=== PATIENT | male | born 1970 | race Caucasian/White ===

== ENCOUNTER 2021-04-23 12:34 | Emergency (ER) | payer BC ==
[2021-04-23] MEDS ORDERED: MORPHINE 4 MG/ML SYR ONE (13:04)
[2021-04-23] MEDS ORDERED: ONDANSETRON 4 MG/2 ML VIAL ONE (13:04)
[2021-04-23 13:34] LABS: Absolute Lymphocytes (CBC) 1.1 K/uL (0.7-4.9); Hematocrit 47.8 % (39.6-49.0); Lymphocytes % 22.8 % (15.3-44.8); MPV 7.9 fL (7.6-11.3); RBC Red Blood Cell Count 5.01 M/uL (4.33-5.43)
--- NOTE | 2021-04-23 13:53 | RAD REPORT ---
EXAM DESCRIPTION: CT - Chest For Pe Angio - 04/23/2021 1:39 pm CLINICAL HISTORY: Chest pain. Pleuritic pain COMPARISON: None. TECHNIQUE: Dynamically enhanced axial 3 mm thick images of the chest were obtained during administra tion of <100> mL Isovue 370 IV contrast. Coronal and oblique reconstruction images were generated and reviewed. Exam utilizes a protocol for optimal evaluation of pulmonary arterial tree. Maximum intensity projections 3D imaging was utilized All CT scans are performed using dose optimization technique as appropriate and may include automated exposure control or mA/KV adjustment according to patient size. FINDINGS: A pulmonary embolus is not seen. A thoracic aortic aneurysm is not noted. A pleural effusion is not seen. A pericardial effusion is not seen. 1 centimeter ground-glass opacity lingula IMPRESSION: Negative for a pulmonary embolism. 1 centimeter ground-glass opacity lingula probably an area of inflammation. Neoplasm is unlikely. How ever, if patient is high risk then follow-up CT chest in 6 months is recommended for re-evaluation
[2021-04-23 13:56] LABS: Albumin 4.3 g/dL (3.4-5.0); Bilirubin Direct 0.1 mg/dL (0-0.2); Bilirubin Total 0.5 mg/dL (0.2-1.0); Magnesium 2.4 mg/dL (1.8-2.4); Potassium 3.6 mmol/L (3.5-5.1); Protein, Total 8.7 g/dL (6.4-8.2); Troponin High Sensitivity 5.1 pg/mL (<58.9)
--- NOTE | 2021-04-23 14:25 | RAD REPORT ---
EXAM DESCRIPTION: Lon Single View04/23/2021 2:03 pm CLINICAL HISTORY: Cough COMPARISON: none FINDINGS: The lungs appear clear of acute infiltrate. The heart is normal size IMPRESSION: No acute abnormalities displayed
[2021-04-23 14:28] LABS: SARS-COV-2 RT PCR NEGATIVE (NEGATIVE)
[2021-04-23] MEDS ORDERED: KETOROLAC 30 MG/ML INJ ONE (15:44)
--- NOTE | 2021-04-23 16:31 | EDPHYS ---
Physician Documentation [facility] Name: Richardson Logan III Age: 50 yrs Sex: Male : 1970 Arrival Date: 04/23/2021 Time: 12:36 Bed 19 Private MD: ED Physician Alex Piedra HPI: 04/23 14:13 This 50 yrs old Male presents to ER via Wheelchair with complaints of Back Pain, Arm rn Pain. 14:13 The patient presents with pain that is acute, with no known mechanism of injury. The rn symptoms are located in the left subscapular area. Onset: The symptoms/episode began/occurred this morning. The pain radiates to the left arm. Associated signs and symptoms: Pertinent positives: Cough and congestion. Modifying factors: The patient symptoms are alleviated by nothing, the patient symptoms are aggravated by Deep breath. Severity of symptoms: At their worst the symptoms were moderate, in the emergency department the symptoms are unchanged. The patient has not experienced similar symptoms in the past. The patient has not recently seen a physician. Patient reports left subscapular pain that radiates to the left arm. Began this morning. Worse with deep inspiration. Reports mild cough and congestion but states always has a cough. No fever. No trauma. No abdominal pain. No chronic respiratory problems. Also reports pain shooting into legs and both arms. No known sick contacts.. Historical: - Allergies: 12:43 No Known Allergies; ld1 - Home Meds: 12:43 None [Active]; ld1 - PMHx: 12:43 None; ld1 - PSHx: 12:43 None; ld1 - Immunization history:: Adult Immunizations up to date, Client reports receiving the 2nd dose of the Covid vaccine, Last tetanus immunization: up to date. - Social history:: Smoking status: Patient denies any tobacco usage or history of. Patient uses alcohol, on a daily basis. admits to "couple of beers" a day. - Family history:: not pertinent. - Hospitalizations: : No recent hospitalization is reported. ROS: 14:13 Constitutional: Negative for fever, chills, and weight loss, Eyes: Negative for injury, rn pain, redness, and discharge, Neck: Negative for injury, pain, and swelling, Cardiovascular: Negative for chest pain, palpitations, and edema, Respiratory: Negative for shortness of breath, wheezing, positive for cough Abdomen/GI: Negative for abdominal pain, nausea, vomiting, diarrhea, and constipation, Back: Negative for injury MS/Extremity: Negative for injury and deformity, Skin: Negative for injury, rash, and discoloration, Neuro: Negative for headache, weakness, numbness, tingling, and seizure. Exam: 14:13 Constitutional: This is a well developed, well nourished patient who is awake, alert, rn appears uncomfortable Head/Face: Normocephalic, atraumatic. Eyes: Periorbital areas with no swelling, redness, or edema. Chest/axilla: Normal chest wall appearance and motion. Nontender with no deformity. No lesions are appreciated. Cardiovascular: Regular rate and rhythm. No pulse deficits. Respiratory: No increased work of breathing, no retractions or nasal flaring. Abdomen/GI: Soft, non-tender Skin: Warm, dry MS/ Extremity: Pulses equal, no cyanosis. Neurovascular intact. Full, normal range of motion. Equal circumference. Neuro: Awake and alert, GCS 15, oriented to person, place, time, and situation. Cranial nerves II-XII grossly intact. Motor strength 5/5 in all extremities. Sensory grossly intact. Cerebellar exam normal. Normal gait. Vital Signs: 12:41 BP 139 / 104; Pulse 102; Resp 18; Temp 98.5(TE); Pulse Ox 97% on R/A; Weight 74.84 kg; ld1 Height 6 ft. 0 in. (182.88 cm); Pain 10/10; 13:44 BP 140 / 106; Pulse 90; Resp 11; Pulse Ox 95% ; bp 15:45 BP 123 / 96; Pulse 79; Resp 16; Pulse Ox 100% ; bp 16:53 BP 124 / 88; Pulse 74; Resp 16; Pulse Ox 96% ; Pain 0/10; cb5 12:41 Body Mass Index 22.38 (74.84 kg, 182.88 cm) ld1 MDM: 12:47 Patient medically screened. rn 16:27 Differential diagnosis: Neoplasm Osteoarthritis pleurisy, pneumonia, COVID. Data rn reviewed: vital signs, nurses notes, lab test result(s), EKG, radiologic studies, CT scan, plain films, and as a result, I will discharge patient. Counseling: I had a detailed discussion with the patient and/or guardian regarding: the historical points, exam findings, and any diagnostic results supporting the discharge/admit diagnosis, lab results, radiology results, the need for outpatient follow up, to return to the emergency department if symptoms worsen or persist or if there are any questions or concerns that arise at home. Response to treatment: the patient's symptoms have markedly improved after treatment, and as a result, I will discharge patient. Special discussion: Based on the patient's history, exam, and Dx evaluation, there is no indication for emergent intervention or inpatient Tx. It is understood by the patient/guardian that if the Sx's persist or worsen they need to return immediately for re-evaluation. I discussed with the patient/guardian in detail that at this point there is no indication for admission to the hospital. It is understood, however, that if the symptoms persist or worsen the patient needs to return immediately for re-evaluation. ED course: Patient feels better after pain medication, CT shows small area of inflammation in the left lung. Troponin negative x2. EKG without acute ischemia. Stable vitals without oxygen requirement. Will discharge home with antibiotics and pain medication given focal area of inflammation and also advised patient for repeat CT 3 to 6 months from now to evaluate for resolution. All results including imaging printed and handed to patient and gone over.. 04/23 12:56 Order name: BMP rn 04/23 12:56 Order name: Blood Culture Adult (2) rn 04/23 12:56 Order name: CBC with Diff; Complete Time: 14:12 04/23 12:56 Order name: Hepatic Function; Complete Time: 14:12 04/23 12:56 Order name: Magnesium; Complete Time: 14:12 04/23 12:56 Order name: NT PRO-BNP; Complete Time: 14:12 04/23 12:56 Order name: PT-INR; Complete Time: 14:12 04/23 12:56 Order name: Ptt, Activated; Complete Time: 14:12 04/23 12:56 Order name: COVID-19/FLU A+B (Document "Date of Onset" if Symptomatic); Complete Time: rn 14:36 04/23 12:57 Order name: Troponin HS; Complete Time: 14:12 04/23 12:57 Order name: Procalcitonin; Complete Time: 14:12 04/23 12:57 Order name: Basic Metabolic Panel; Complete Time: 14:12 EDMN 04/23 12:57 Order name: Blood Culture EDMN 04/23 15:25 Order name: Troponin High Sensitivity; Complete Time: 16:27 rn 04/23 12:56 Order name: CT Chest For PE Angio; Complete Time: 14:12 rn 04/23 12:56 Order name: XRAY CXR (1 view); Complete Time: 14:36 rn 04/23 12:56 Order name: EKG; Complete Time: 12:57 rn 04/23 12:56 Order name: Cardiac monitoring; Complete Time: 13:05 rn 04/23 12:56 Order name: EKG - Nurse/Tech; Complete Time: 13:04 rn 04/23 12:56 Order name: IV Saline Lock; Complete Time: 13:20 rn 04/23 12:56 Order name: Labs collected and sent; Complete Time: 13:20 rn 04/23 12:56 Order name: O2 Per Protocol; Complete Time: 13:05 rn 04/23 12:56 Order name: O2 Sat Monitoring; Complete Time: 13:05 rn Administered Medications: 13:10 Drug: morphine 4 mg Route: IVP; Site: right forearm; bp 13:49 Follow up: Response: Pain is decreased bp 13:10 Drug: Zofran (Ondansetron) 4 mg Route: IVP; Site: right forearm; bp 13:49 Follow up: Response: No adverse reaction bp 15:45 Drug: Ketorolac 30 mg Route: IVP; Site: right forearm; bp Disposition Summary: 04/23/21 16:30 Discharge Ordered Location: Home rn Problem: new rn Symptoms: have improved rn Condition: Stable rn Diagnosis - Pleurisy rn - Focal pneumonitis rn Followup: rn - With: Private Physician - When: As needed - Reason: Recheck today's complaints, Re-evaluation by your physician Discharge Instructions: - Discharge Summary Sheet rn - Pleurisy rn Forms: - Medication Reconciliation Form rn - Thank You Letter rn - Antibiotic internal medicine nurse practitioner - Prescription Opioid Use rn Prescriptions: - Prednisone 20 mg Oral Tablet - take 3 tablets by ORAL route once daily for 5 days; 15 tablet; Refills: 0, rn Product Selection Permitted - Tramadol 50 mg Oral Tablet - take 1 tablet by ORAL route every 8 hours as needed; 12 tablet; Refills: 0, rn Product Selection Permitted - Zithromax Z-Zeyad 250 mg Oral Tablet - take 1 tablet by ORAL route as directed for 5 days Day 1 - take two (2) tablets rn one time. Day 2, 3, 4 , 5 take one (1) tablet once daily.; 6 tablet; Refills: 0, Product Selection Permitted Signatures: Dispatcher [employer] EDAlex Goodson MD MD rn Peltier, Brian, RN RN bp Dibbern, Lauren, RN RN ld1 Corrections: (The following items were deleted from the chart) 12:44 12:43 PSHx: None; ld1 ld1
--- NOTE | 2021-04-23 16:31 | ER ---
Nurse's Notes [facility] Name: Richardson Logan III Age: 50 yrs Sex: Male : 1970 Arrival Date: 04/23/2021 Time: 12:36 Bed 19 Private MD: Diagnosis: Pleurisy;Focal pneumonitis Presentation: 04/23 12:41 Chief complaint: Patient states: Pain in left shoulder blade began this morning ld1 radiates down left arm. Denies any trauma. Coronavirus screen: At this time, the client does not indicate any symptoms associated with coronavirus-19. Ebola Screen: No symptoms or risks identified at this time. Initial Sepsis Screen: Does the patient meet any 2 criteria? No. Patient's initial sepsis screen is negative. Does the patient have a suspected source of infection? No. Patient's initial sepsis screen is negative. Risk Assessment: Do you want to hurt yourself or someone else? Patient reports no desire to harm self or others. Onset of symptoms was April 23, 2021. 12:41 Method Of Arrival: Wheelchair ld1 12:41 Acuity: NETTA 3 ld1 Triage Assessment: 12:43 General: Appears in no apparent distress. uncomfortable, Behavior is calm, cooperative, ld1 appropriate for age. Pain: Complains of pain in left scapular area Pain radiates to left arm Pain currently is 3 out of 10 on a pain scale. at worst was 10 out of 10 on a pain scale. Quality of pain is described as stabbing, throbbing, Pain began suddenly, Is intermittent. Neuro: Level of Consciousness is awake, alert, obeys commands, Oriented to person, place, time, situation. Respiratory: Airway is patent Respiratory effort is even, unlabored, Respiratory pattern is regular, symmetrical. Musculoskeletal: Capillary refill < 3 seconds, Reports pain in left arm. Historical: - Allergies: 12:43 No Known Allergies; ld1 - Home Meds: 12:43 None [Active]; ld1 - PMHx: 12:43 None; ld1 - PSHx: 12:43 None; ld1 - Immunization history:: Adult Immunizations up to date, Client reports receiving the 2nd dose of the Covid vaccine, Last tetanus immunization: up to date. - Social history:: Smoking status: Patient denies any tobacco usage or history of. Patient uses alcohol, on a daily basis. admits to "couple of beers" a day. - Family history:: not pertinent. - Hospitalizations: : No recent hospitalization is reported. Screenin:45 Abuse screen: Denies threats or abuse. Denies injuries from another. Nutritional bp screening: No deficits noted. Tuberculosis screening: No symptoms or risk factors identified. Fall Risk None identified. Assessment: 12:45 General: SEE TRIAGE NOTE. bp 13:44 Reassessment: PT RETURNED FROM CT. bp Vital Signs: 12:41 BP 139 / 104; Pulse 102; Resp 18; Temp 98.5(TE); Pulse Ox 97% on R/A; Weight 74.84 kg; ld1 Height 6 ft. 0 in. (182.88 cm); Pain 10/10; 13:44 BP 140 / 106; Pulse 90; Resp 11; Pulse Ox 95% ; bp 15:45 BP 123 / 96; Pulse 79; Resp 16; Pulse Ox 100% ; bp 16:53 BP 124 / 88; Pulse 74; Resp 16; Pulse Ox 96% ; Pain 0/10; cb5 12:41 Body Mass Index 22.38 (74.84 kg, 182.88 cm) ld1 ED Course: 12:36 Patient arrived in ED. am2 12:43 Triage completed. ld1 12:43 Arm band placed on right wrist. ld1 12:47 Orlando Mcclellan, RN is Primary Nurse. bp 12:47 Alex Piedra MD is Attending Physician. rn 13:04 EKG done, by ED staff, reviewed by Alex Piedra MD. 5 13:05 Patient has correct armband on for positive identification. Bed in low position. Call [facility] light in reach. Side rails up X 1. Warm blanket given. monitoring and evaluation advisor on. Pulse ox on. NIBP on. 13:10 Inserted saline lock: 20 gauge in right forearm, using aseptic technique. Blood bp collected. 13:18 COVID swab sent to lab. 5 13:19 Blood Culture Sent. 5 13:20 Basic Metabolic Panel Sent. 5 13:20 Procalcitonin Sent. 5 13:20 Troponin HS Sent. [facility] 13:20 COVID-19/FLU A+B (Document "Date of Onset" if Symptomatic) Sent. 5 13:20 BMP Sent. 5 13:20 Blood Culture Adult (2) Sent. [facility] 13:20 CBC with Diff Sent. 5 13:20 Hepatic Function Sent. [facility] 13:20 Magnesium Sent. [facility] 13:20 NT PRO-BNP Sent. [facility] 13:20 PT-INR Sent. 5 13:20 Ptt, Activated Sent. 5 13:39 CT Chest For PE Angio In Process Unspecified. EDMS 14:02 XRAY CXR (1 view) In Process Unspecified. EDMS 15:34 Troponin High Sensitivity Sent. 5 16:54 IV discontinued. cb5 16:54 No provider procedures requiring assistance completed. cb5 Administered Medications: 13:10 Drug: morphine 4 mg Route: IVP; Site: right forearm; bp 13:49 Follow up: Response: Pain is decreased bp 13:10 Drug: Zofran (Ondansetron) 4 mg Route: IVP; Site: right forearm; bp 13:49 Follow up: Response: No adverse reaction bp 15:45 Drug: Ketorolac 30 mg Route: IVP; Site: right forearm; bp Outcome: 16:30 Discharge ordered by . rn 16:54 Discharged to home ambulatory. cb5 16:54 Condition: stable 16:54 Discharge instructions given to patient. 16:55 Patient left the ED. 5 Signatures: Dispatcher [employer] EDMS Alex Piedra MD MD rn Martinez, Maria 5 Maryam Lemus am2 Orlando Mcclellan, RN RN bp Darcy Santiago, RN RN ld1 Lisa Parada, RN RN cb5 Corrections: (The following items were deleted from the chart) 12:44 12:43 PSHx: None; ld1 ld1
[2021-04-23 19:06] VITALS: TEMP 98.5
[2021-04-23 19:11] VITALS: BP 124/88; O2SAT 96
== END 2021-04-23 16:55 | disposition home or self-care (01) ==
LOC: ER 12:34
DX: R09.1 Pleurisy (principal); J18.8 Other pneumonia, unspecified organism; Z20.822 Contact with and (suspected) exposure to COVID-19
CPT/HCPCS: 93005; 87040 ×2; 85025; 80048; 36415; 83735; 85610; 82565; 80076; 85730; 84484 ×2; 84145; 83880; 0240U; 71275; 71045; 96375; 96374; 99284; Q9967; J2405

== ENCOUNTER 2022-03-14 11:07 | Emergency (ER) | payer BC ==
[2022-03-14] MEDS ORDERED: DIAZEPAM 5 MG TABLET ONE (12:20)
[2022-03-14] MEDS ORDERED: KETOROLAC 30 MG/ML INJ ONE (12:20)
--- NOTE | 2022-03-14 13:05 | ER ---
Nurse's Notes [facility] Name: Richardson Logan III Age: 51 yrs Sex: Male : 1970 Arrival Date: 03/14/2022 Time: 11:11 Bed 10 Private MD: Diagnosis: Back pain;Muscle spasm of back Presentation: 03/14 11:46 Chief complaint: Patient states: I picked up my and I think I have the same thing jh5 that happened last time I was here. It hurts really bad on the right side of my back. Ice pack helped a little but not a lot. Coronavirus screen: Vaccine status: Patient reports receiving the 2nd dose of the covid vaccine. Client denies travel out of the [place] in the last 14 days. Ebola Screen: Patient negative for fever greater than or equal to 101.5 degrees Fahrenheit, and additional compatible Ebola Virus Disease symptoms Patient denies exposure to infectious person. Patient denies travel to an Ebola-affected area in the 21 days before illness onset. Initial Sepsis Screen: Does the patient meet any 2 criteria? No. Patient's initial sepsis screen is negative. Does the patient have a suspected source of infection? No. Patient's initial sepsis screen is negative. Risk Assessment: Do you want to hurt yourself or someone else? Patient reports no desire to harm self or others. 11:46 Method Of Arrival: Ambulatory [facility] 11:46 Acuity: NETTA 3 jh5 Triage Assessment: 11:47 General: Appears in no apparent distress. uncomfortable, slender, well groomed, well jh5 developed, Behavior is calm, cooperative, appropriate for age. Pain: Complains of pain in back. Musculoskeletal: Circulation, motion, and sensation intact. Capillary refill < 3 seconds, Range of motion: intact in all extremities. Historical: - Allergies: 11:47 No Known Allergies; jh5 - PMHx: 11:47 None; [facility] - Immunization history:: Adult Immunizations up to date. - Social history:: Smoking status: Patient denies any tobacco usage or history of. Screenin:19 Abuse screen: Denies threats or abuse. Denies injuries from another. Nutritional [facility] screening: No deficits noted. Tuberculosis screening: No symptoms or risk factors identified. Fall Risk No fall in past 12 months (0 pts). Vital Signs: 11:46 BP 132 / 84; Pulse 84; Resp 18; Temp 98.6; Pulse Ox 100% ; Weight 77.11 kg; Height 6 jh5 ft. 0 in. (182.88 cm); Pain 10/10; 11:46 Body Mass Index 23.06 (77.11 kg, 182.88 cm) [facility] ED Course: 11:11 Patient arrived in ED. mr 11:30 [facility]C [facility] snw 11:30 Matt Cantu DO is Attending Physician. snw 11:47 Triage completed. 5 11:47 Arm band placed on right wrist. 5 13:19 Patient has correct armband on for positive identification. Placed in gown. Bed in low [facility] position. Call light in reach. Side rails up X2. Pulse ox on. NIBP on. 13:19 No provider procedures requiring assistance completed. Patient did not have IV access [facility] during this emergency room visit. Administered Medications: 12:22 Drug: Valium (diazepam) 10 mg Route: PO; ld1 12:22 Drug: Ketorolac 30 mg Route: IM; Site: right deltoid; ld1 Outcome: 13:05 Discharge ordered by . [facility] 13:19 Discharged to home ambulatory, with family. [facility] 13:19 Condition: stable 13:19 Discharge instructions given to patient, family, Instructed on discharge instructions, follow up and referral plans. Demonstrated understanding of instructions, follow-up care, medications, Prescriptions given X 2. 13:20 Patient left the ED. [facility] Signatures: Antonella Nair FNP-C FNP-Yonathan Marco AntonioAdri Darcy Santiago, RN RN ld1 Keesha Camacho RN RN 5
--- NOTE | 2022-03-14 13:05 | EDPHYS ---
Physician Documentation [facility] Name: Richardson Logan III Age: 51 yrs Sex: Male : 1970 Arrival Date: 03/14/2022 Time: 11:11 Bed 10 Private MD: ED Physician Matt Cantu HPI: 03/14 13:03 This 51 yrs old Male presents to ER via Ambulatory with complaints of Back Pain. snw 13:03 The patient presents with pain that is acute. The symptoms are located in the right mid snw back. Onset: The symptoms/episode began/occurred acutely. Associated signs and symptoms: Pertinent positives: spasm. The problem was sustained when lifting "". Severity of symptoms: At their worst the symptoms were moderate. The patient has experienced a previous episode. The patient has not recently seen a physician. Historical: - Allergies: 11:47 No Known Allergies; jh5 - PMHx: 11:47 None; [facility] - Immunization history:: Adult Immunizations up to date. - Social history:: Smoking status: Patient denies any tobacco usage or history of. ROS: 13:03 Constitutional: Negative for fever, chills, and weight loss, Eyes: Negative for injury, snw pain, redness, and discharge, ENT: Negative for injury, pain, and discharge, Neck: Negative for injury, pain, and swelling, Cardiovascular: Negative for chest pain, palpitations, and edema, Respiratory: Negative for shortness of breath, cough, wheezing, and pleuritic chest pain, Abdomen/GI: Negative for abdominal pain, nausea, vomiting, diarrhea, and constipation, : Negative for injury, bleeding, discharge, and swelling, MS/Extremity: Negative for injury and deformity, Skin: Negative for injury, rash, and discoloration, Neuro: Negative for headache, weakness, numbness, tingling, and seizure, Psych: Negative for depression, anxiety, suicide ideation, homicidal ideation, and hallucinations. 13:03 Back: Positive for decreased range of motion, pain with movement, flank pain, on the right. Exam: 12:03 Constitutional: This is a well developed, well nourished patient who is awake, alert, snw and in no acute distress. Head/Face: Normocephalic, atraumatic. Eyes: Pupils equal round and reactive to light, extra-ocular motions intact. Lids and lashes normal. Conjunctiva and sclera are non-icteric and not injected. Cornea within normal limits. Periorbital areas with no swelling, redness, or edema. ENT: Nares patent. No nasal discharge, no septal abnormalities noted. Tympanic membranes are normal and external auditory canals are clear. Oropharynx with no redness, swelling, or masses, exudates, or evidence of obstruction, uvula midline. Mucous membranes moist. Neck: Trachea midline, no thyromegaly or masses palpated, and no cervical lymphadenopathy. Supple, full range of motion without nuchal rigidity, or vertebral point tenderness. No Meningismus. Chest/axilla: Normal chest wall appearance and motion. Nontender with no deformity. No lesions are appreciated. Cardiovascular: Regular rate and rhythm with a normal S1 and S2. No gallops, murmurs, or rubs. Normal PMI, no JVD. No pulse deficits. Respiratory: Lungs have equal breath sounds bilaterally, clear to auscultation and percussion. No rales, rhonchi or wheezes noted. No increased work of breathing, no retractions or nasal flaring. Skin: Warm, dry with normal turgor. Normal color with no rashes, no lesions, and no evidence of cellulitis. MS/ Extremity: Pulses equal, no cyanosis. Neurovascular intact. Full, normal range of motion. Neuro: Awake and alert, GCS 15, oriented to person, place, time, and situation. Cranial nerves II-XII grossly intact. Motor strength 5/5 in all extremities. Sensory grossly intact. Cerebellar exam normal. Normal gait. 12:03 Abdomen/GI: Inspection: abdomen appears normal, Bowel sounds: normal. 12:03 Back: CVA tenderness, that is moderate, is noted on the right, muscle spasm, is appreciated in the right mid back. Vital Signs: 11:46 BP 132 / 84; Pulse 84; Resp 18; Temp 98.6; Pulse Ox 100% ; Weight 77.11 kg; Height 6 jh5 ft. 0 in. (182.88 cm); Pain 10/10; 11:46 Body Mass Index 23.06 (77.11 kg, 182.88 cm) [facility] MDM: 11:57 Patient medically screened. snw 13:06 Data reviewed: vital signs, nurses notes. Data interpreted: Pulse oximetry: on room air snw is 100 %. Interpretation: normal. Counseling: I had a detailed discussion with the patient and/or guardian regarding: the historical points, exam findings, and any diagnostic results supporting the discharge/admit diagnosis, the need for outpatient follow up, to return to the emergency department if symptoms worsen or persist or if there are any questions or concerns that arise at home. Special discussion: Based on the history and exam findings, there is no indication for further emergent testing or inpatient evaluation. I discussed with the patient/guardian the need to see the primary care provider for further evaluation of the symptoms. Administered Medications: : Drug: Valium (diazepam) 10 mg Route: PO; ld1 : Drug: Ketorolac 30 mg Route: IM; Site: right deltoid; ld1 Disposition: 12:41 Co-signature as Attending Physician, Matt Cantu DO I was immediately available onsite ms3 in the emergency department for consultation in the care of the patient. Disposition Summary: 03/14/22 13:05 Discharge Ordered Location: Home snw Condition: Stable snw Diagnosis - Back pain snw - Muscle spasm of back snw Followup: snw - With: Emergency Department - When: As needed - Reason: Worsening of condition Discharge Instructions: - Discharge Summary Sheet snw - Muscle Cramps and Spasms snw - Back Injury Prevention, [id number] snw - Heat Therapy snw - Back Exercises snw Forms: - Medication Reconciliation Form snw - Thank You Letter snw - Antibiotic Education snw - Prescription Opioid Use snw - Work release form 3 Prescriptions: - Mobic 7.5 mg Oral Tablet - take 1 tablet by ORAL route once daily take with food; 20 tablet; Refills: 0, snw Product Selection Permitted - orphenadrine citrate 100 mg Oral Tablet Sustained Release - take 1 tablet by ORAL route 2 times per day As needed; 20 tablet; Refills: 0, snw Product Selection Permitted Signatures: Antonella Nair FNP-C FNP-Matt Roberts DO DO ms3 Darcy Santiago, RN RN ld1 Keesha Camacho RN RN jh5
[2022-03-14 13:35] VITALS: BP 132/84; TEMP 98.6; O2SAT 100
== END 2022-03-14 13:20 | disposition home or self-care (01) ==
LOC: ER 11:07
DX: M62.830 Muscle spasm of back (principal)
CPT/HCPCS: 96372; 99283

== ENCOUNTER 2024-08-23 21:36 | Emergency (ER) | payer BC ==
[2024-08-23 22:27] LABS: Absolute Eosinophils 0.1 K/uL (0-0.5); Absolute Lymphocytes (CBC) 1.1 K/uL (0.7-4.9); Absolute Monocytes 0.3 K/uL (0.1-1.3); Absolute Neutrophil 1.7 K/uL (1.8-8.0); Basophils % 0.7 % (0-1.3); Eosinophils % 1.6 % (0-4.4); Hematocrit 43.1 % (39.6-49.0); Hemoglobin 15.1 g/dL (13.6-17.9); Lymphocytes % 35.3 % (15.3-44.8); MCH 33.4 pg (27.0-35.0); MCHC 35.1 g/dL (32.0-36.0); MCV 95.1 fL (80-100); Monocytes % 8.2 % (3.3-12.3); Neutrophils % 54.2 % (41.7-73.7); Nucleated Red Blood Cells % 0.3 % (0-0); Platelets 259 thou/uL (152-406); RBC Red Blood Cell Count 4.54 M/uL (4.33-5.43); Red Cell Distribution Width 13.1 % (12.1-15.2)
--- NOTE | 2024-08-23 22:27 | RAD REPORT ---
EXAMINATION: Head Brain Wo Cont CLINICAL INDICATION: Male, 53 years old.Slurred speech;Syncope TECHNIQUE: Axial CT images from the skull base to the vertex without intravenous contrast. Coronal an d sagittal reformatted images were created from the data set. One or more of the following dose reduction techniques were used: Automated exposure control, adjustment of the mA and/or kV according to patient size, and/or iterative reconstruction. Unless otherwise specified, incidental findings do not require dedicated imaging follow-up. [id number]. COMPARISON: No prior exam. FINDINGS: INTRACRANIAL: No acute intracranial hemorrhage. No hydrocephalus. No mass effect or midline shift. No significant white matter disease. VASCULATURE: No visualized abnormalities in the arteries or dural venous sinuses. SCALP/SKULL: No calvarial fracture identified. No acute soft tissue abnormality. SINUSES: The visualized paranasal sinuses are mostly clear. No significant mastoid fluid. IMPRESSION: No acute intracranial abnormality.
[2024-08-23 22:40] LABS: ALT/SGPT 34 U/L (16-61); AST/SGOT 23 U/L (15-37); Albumin 3.7 g/dL (3.4-5.0); Alkaline Phosphatase 50 U/L (45-117); Anion Gap 8.8 mEq/L (5.0-15.0); BUN Blood Urea Nitrogen 11 mg/dL (7-18); Bicarbonate 25 mEq/L (21-32); Bilirubin Direct < 0.2 mg/dL (0-0.2); Bilirubin Indirect, Calculated 0.1 mg/dL (0.2-0.8); Bilirubin Total 0.3 mg/dL (0.2-1.0); Globulin 3.6 g/dL (2.3-3.5); Glomerular Filtration Rate 104 ml/min (=/>90); Glucose Level 93 mg/dL (74-106); Magnesium 2.5 mg/dL (1.6-2.4); NT PRO-BNP 6 pg/mL (<125); Potassium 3.8 mEq/L (3.5-5.1); Protein, Total 7.3 g/dL (6.4-8.2); Sodium Level 139 mEq/L (136-145); Troponin High Sensitivity 3.1 pg/mL (<58.9)
--- NOTE | 2024-08-23 22:41 | RAD REPORT ---
EXAM: Chest Single View HISTORY: 53 years Male CHEST PAIN COMPARISON: 04/23/2021 FINDINGS: LUNGS/PLEURA: The lungs are clear. No pleural effusions or pneumothorax. No pulmonary edema. CARDIAC/MEDIASTINUM: The cardiac silhouette is within normal limits. UPPER ABDOMEN: No significant abnormality. BONES: No acute abnormality. LINES/TUBES/OTHER: N/A IMPRESSION: No evidence of acute cardiopulmonary disease. No significant change from prior.
[2024-08-23 22:51] LABS: Barbiturates NEGATIVE (NEGATIVE); Benzodiazepines NEGATIVE (NEGATIVE); Cocaine NEGATIVE (NEGATIVE); METHAMPHETAM NEGATIVE (NEGATIVE); Methadone NEGATIVE (NEGATIVE); Opiates NEGATIVE (NEGATIVE); Phencyclidine NEGATIVE (NEGATIVE); THC Cannibis NEGATIVE (NEGATIVE)
--- NOTE | 2024-08-23 23:13 | ER ---
Nurse's Notes [facility] Name: Richardson Logan III Age: 53 yrs Sex: Male : 1970 Arrival Date: 08/23/2024 Time: 21:36 Bed 2 Private MD: Diagnosis: Syncope Near Presentation: 08/23 21:38 Chief complaint: EMS states: HE WAS LAYING ON A CHAIR RELAXING OUTSIDE AFTER HAVING ha1 THREE BEERS, LATER HE TRIED TO STAND UP AND FELT VERY WEAK, DIZZY, SLURRED SPEECH. POSSIBLE SYNCOPE EPISODE. WE GAVE A LITER OF NS AND SYMPTOMS IMPROVED. REPORTS BEEN WORKING A LOT LATELY . 21:38 Coronavirus screen: Client denies travel out of the [place] in the last 14 days. Ebola ha1 Screen: No symptoms or risks identified at this time. Initial Sepsis Screen: Does the patient meet any 2 criteria? No. Patient's initial sepsis screen is negative. Does the patient have a suspected source of infection? No. Patient's initial sepsis screen is negative. Risk Assessment: Do you want to hurt yourself or someone else? Patient reports no desire to harm self or others. Onset of symptoms was August 23, 2024. 21:38 Method Of Arrival: EMS: [facility] ha1 21:38 Acuity: NETTA 2 ha1 Triage Assessment: 21:38 The onset of the patients symptoms was August 23, 2024 at 20:40. General: Appears ha1 comfortable, Behavior is calm, cooperative. Pain: Denies pain. Neuro: Level of Consciousness is awake, alert, obeys commands, Oriented to person, place, time, situation, Reports dizziness, a syncopal episode. Cardiovascular: Capillary refill < 3 seconds Patient's skin is warm and dry. Respiratory: Airway is patent Respiratory effort is even, unlabored, Respiratory pattern is regular, symmetrical. GI: No signs and/or symptoms were reported involving the gastrointestinal system. Abdomen is round non-distended. : No signs and/or symptoms were reported regarding the genitourinary system. Derm: Skin is normal. Musculoskeletal: Circulation, motion, and sensation intact. Range of motion: intact in all extremities. Historical: - Allergies: 22:00 No Known Allergies; ha1 - PMHx: 22:00 Hypertensive disorder; SPOT IN THE LUNG; ha1 - Immunization history:: Adult Immunizations up to date. - Infectious Disease History:: Denies. - Social history:: Smoking status: Patient uses CIGARS . Screenin:38 [facility] ED Fall Risk Assessment (Adult) History of falling in the last 3 months, ha1 including since admission No falls in past 3 months (0 pts) Confusion or Disorientation No (0 pts) Intoxicated or Sedated Yes (3 pts) Impaired Gait Yes (1 pt) Mobility Assist Device Used Yes (1 pt) Altered Elimination No (0 pt) Score/Fall Risk Level 3 or more points = High Risk Oriented to surroundings, Maintained a safe environment, Educated pt \T\ family on fall prevention, incl call for assistance when getting out of bed, Hourly rounding (assess needs \T\ fall precautionary measures) done. Abuse screen: Denies threats or abuse. Denies injuries from another. Nutritional screening: No deficits noted. Tuberculosis screening: No symptoms or risk factors identified. Assessment: 21:38 Reassessment: Patient is alert/active/playful, equal unlabored respirations, skin ha1 warm/dry/pink. SEE TRIAGE ASSESSMENT Patient states symptoms have improved. 22:03 [facility] Swallow Protocol Brief Cognitive Screen. ha1 22:05 Reassessment: Patient and/or family updated on plan of care and expected duration. Pain ha1 level reassessed. Patient is alert, oriented x 3, equal unlabored respirations, skin warm/dry/pink. 22:43 Reassessment: Patient appears in no apparent distress at this time. Patient and/or bm8 family updated on plan of care and expected duration. Pain level reassessed. Patient is alert, oriented x 3, equal unlabored respirations, skin warm/dry/pink. Patient denies pain at this time. Patient states feeling better. Patient states symptoms have improved. 23:19 Reassessment: Patient appears in no apparent distress at this time. Patient and/or bm8 family updated on plan of care and expected duration. Pain level reassessed. Patient is alert, oriented x 3, equal unlabored respirations, skin warm/dry/pink. Patient denies pain at this time. Patient states feeling better. Patient states symptoms have improved. Vital Signs: 21:38 BP 136 / 100; Pulse 54; Resp 18 S; Temp 97.9(O); Pulse Ox 96% on R/A; Weight 79.38 kg; ha1 Height 5 ft. 9 in. ; 22:43 BP 117 / 87; Pulse 74; Resp 18; Temp 97.6; Pulse Ox 99% ; Pain 0/10; bm8 23:04 BP 110 / 85; Pulse 64; Resp 18 S; Pulse Ox 98% on R/A; ha1 23:19 BP 110 / 82; Pulse 64; Resp 20; Temp 98.1; Pulse Ox 100% ; Pain 0/10; bm8 21:38 Body Mass Index 25.84 (79.38 kg, 175.26 cm) ha1 22:43 Pain Scale: Adult bm8 23:19 Pain Scale: Adult bm8 [place] Com[place] Score: 22:43 Eye Response: spontaneous(4). Motor Response: obeys commands(6). Verbal Response: bm8 oriented(5). Total: 15. 23:19 Eye Response: spontaneous(4). Motor Response: obeys commands(6). Verbal Response: bm8 oriented(5). Total: 15. NIH Stroke Scale Scores: 21:38 NIHSS Score: 0 ha1 22:11 NIHSS Score: 0 sb4 ED Course: 21:37 Patient arrived in ED. jj6 21:38 Patient has correct armband on for positive identification. Placed in gown. Bed in low ha1 position. Call light in reach. Side rails up X2. Adult w/ patient. 21:38 Client placed on continuous cardiac and pulse oximetry monitoring. NIBP monitoring ha1 applied. monitoring manager on. 21:40 Katie Morris PA-C is PHCP. sb4 21:40 Dany Valadez MD is Attending Physician. sb4 21:53 Initial lab(s) drawn, by me, sent to lab. EKG done, by ED staff, reviewed by Katie Morris PA-C. Maintain EMS IV. Dressing intact. Good blood return noted. Site clean \T\ dry. Gauge \T\ site: 18G LAC. Flushed with 10 mL NS. 22:00 Triage completed. ha1 22:17 Head Brain Wo Cont CT In Process Unspecified. EDMS 22:36 XRAY Chest (1 view) In Process Unspecified. EDMS 22:42 Prateek Torres, RN is Primary Nurse. bm8 23:19 No provider procedures requiring assistance completed. IV discontinued, intact, bm8 bleeding controlled, No redness/swelling at site. Pressure dressing applied. 23:19 Provided Education on: post er care. bm8 23:20 Arm band placed on right wrist. bm8 Administered Medications: No medications were administered Medication: 23:19 VIS not applicable for this client. bm8 Outcome: 23:12 Discharge ordered by . sb4 23:19 Discharged to home ambulatory, with family, bm8 23:19 Condition: improved 23:19 Discharge instructions given to patient, family, Instructed on discharge instructions, follow up and referral plans. Demonstrated understanding of instructions, follow-up care, medications, 23:20 Patient left the ED. bm8 NIH Stroke Scale - NIH Stroke Score Date: 08/23/2024 Time: 21:38 Total Score = 0 10. Dysarthria (speech clarity - read or repeat words) - 0(Normal) 11. Extinction and Inattention (visual/tactile/auditory/spatial/personal) - 0(No abnormality) 1a. Level of Consciousness (LOC) - 0(Alert) 1b. Level of Consciousness (LOC) (Month \T\ Age) - 0(Both) 1c. LOC Commands (Open \T\ Closes Eyes/Janitor [employer] Cleaner) - 0(Both) 2. Best Gaze (Lateral Gaze Paresis) - 0(Normal) 3. Visual Field Loss - 0(No visual loss) 4. Facial Palsy - 0(Normal) 5a. Left Arm: Motor (10-second hold) - 0(No drift) 5b. Right Arm: Motor (10-second hold) - 0(No drift) 6a. Left Leg: Motor (5-second hold - always test supine) - 0(No drift) 6b. Right Leg: Motor (5-second hold - always test supine) - 0(No drift) 7. Limb Ataxia (finger/nose \T\ heel/murray - test with eyes open) - 0(Absent) 8. Sensory Loss (pinprick arms/legs/face) - 0(Normal) 9. Best Language: Aphasia (description/naming/reading) - 0(No aphasia) Initials: ha1 NIH Stroke Scale - NIH Stroke Score Date: 08/23/2024 Time: 22:11 Total Score = 0 10. Dysarthria (speech clarity - read or repeat words) - 0(Normal) 11. Extinction and Inattention (visual/tactile/auditory/spatial/personal) - 0(No abnormality) 1a. Level of Consciousness (LOC) - 0(Alert) 1b. Level of Consciousness (LOC) (Month \T\ Age) - 0(Both) 1c. LOC Commands (Open \T\ Closes Eyes/Janitor And Cleaner) - 0(Both) 2. Best Gaze (Lateral Gaze Paresis) - 0(Normal) 3. Visual Field Loss - 0(No visual loss) 4. Facial Palsy - 0(Normal) 5a. Left Arm: Motor (10-second hold) - 0(No drift) 5b. Right Arm: Motor (10-second hold) - 0(No drift) 6a. Left Leg: Motor (5-second hold - always test supine) - 0(No drift) 6b. Right Leg: Motor (5-second hold - always test supine) - 0(No drift) 7. Limb Ataxia (finger/nose \T\ heel/murray - test with eyes open) - 0(Absent) 8. Sensory Loss (pinprick arms/legs/face) - 0(Normal) 9. Best Language: Aphasia (description/naming/reading) - 0(No aphasia) Initials: sb4 Signatures: Dispatcher [employer] EDMS Stephania Rogers jj6 Kasey Sams, RN RN ha1 Katie Morris PAJacques PAUsmanC sb4 Prateek Torres, RN RN bm8
--- NOTE | 2024-08-23 23:13 | EDPHYS ---
Physician Documentation [facility] Name: Richardson Logan III Age: 53 yrs Sex: Male : 1970 Arrival Date: 08/23/2024 Time: 21:36 Bed 2 Private MD: ED Physician Dany Valadez HPI: 08/23 22:11 This 53 yrs old Male presents to ER via EMS with complaints of Weakness. sb4 22:11 Patient states that he was just sitting outside, had drink a few beers, when he fell sb4 asleep. States when he woke up he could barely move, could not stand, felt extremely weak, slurred speech. EMS came and states that he was basically weight but verbally responsive. Vitals and blood sugar were within normal limits. They administered 500 mL of fluids and he returned to his baseline. Historical: - Allergies: 22:00 No Known Allergies; ha1 - PMHx: 22:00 Hypertensive disorder; SPOT IN THE LUNG; ha1 - Immunization history:: Adult Immunizations up to date. - Infectious Disease History:: Denies. - Social history:: Smoking status: Patient uses CIGARS . ROS: 22:11 Constitutional: Negative for fever, chills, and weight loss, sb4 22:11 Neuro: Positive for weakness, 22:11 All other systems are negative, Exam: 22:11 Constitutional: This is a well developed, well nourished patient who is awake, alert, sb4 and in no acute distress. Head/Face: Normocephalic, atraumatic. Eyes: Extra-ocular motions intact. Periorbital areas with no swelling, redness, or edema. ENT: Mucous membranes moist. Cardiovascular: Regular rate and rhythm with a normal S1 and S2. Respiratory: No increased work of breathing, no retractions or nasal flaring. Abdomen/GI: Soft, non-tender, no distension. Skin: Warm, dry with normal turgor. Normal color with no rashes, no lesions, and no evidence of cellulitis. MS/ Extremity: Pulses equal, no cyanosis. Neurovascular intact. Full, normal range of motion. Neuro: Awake and alert, GCS 15, oriented to person, place, time, and situation. Motor strength 5/5 in all extremities. Sensory grossly intact. Vital Signs: 21:38 BP 136 / 100; Pulse 54; Resp 18 S; Temp 97.9(O); Pulse Ox 96% on R/A; Weight 79.38 kg; ha1 Height 5 ft. 9 in. ; 22:43 BP 117 / 87; Pulse 74; Resp 18; Temp 97.6; Pulse Ox 99% ; Pain 0/10; bm8 23:04 BP 110 / 85; Pulse 64; Resp 18 S; Pulse Ox 98% on R/A; ha1 23:19 BP 110 / 82; Pulse 64; Resp 20; Temp 98.1; Pulse Ox 100% ; Pain 0/10; bm8 21:38 Body Mass Index 25.84 (79.38 kg, 175.26 cm) ha1 22:43 Pain Scale: Adult bm8 23:19 Pain Scale: Adult bm8 NIH Stroke Scale Scores: 21:38 NIHSS Score: 0 ha1 22:11 NIHSS Score: 0 sb4 Manjinder Coma Score: 22:43 Eye Response: spontaneous(4). Motor Response: obeys commands(6). Verbal Response: bm8 oriented(5). Total: 15. 23:19 Eye Response: spontaneous(4). Motor Response: obeys commands(6). Verbal Response: bm8 oriented(5). Total: 15. MDM: 21:40 Medical Screening Exam initiated sb4 23:13 Data reviewed: vital signs, nurses notes, EMS record, lab test result(s), EKG, sb4 radiologic studies, and as a result, I will discharge patient. Counseling: I had a detailed discussion with the patient and/or guardian regarding the historical points, exam findings, and any diagnostic results supporting the discharge/admit diagnosis, lab results, radiology results, the need for outpatient follow up, for definitive care, to return to the emergency department if symptoms worsen or persist or if there are any questions or concerns that arise at home. 08/23 21:41 Order name: Basic Metabolic Panel; Complete Time: 22:41 sb4 08/23 21:41 Order name: CBC with Diff; Complete Time: 22:30 sb4 08/23 21:41 Order name: LFT's; Complete Time: 22:41 sb4 08/23 21:41 Order name: Magnesium; Complete Time: 22:41 sb4 08/23 21:41 Order name: NT PRO-BNP; Complete Time: 22:41 sb4 08/23 21:41 Order name: Troponin HS; Complete Time: 22:41 sb4 08/23 21:41 Order name: ETOH Level; Complete Time: 23:10 sb4 08/23 21:58 Order name: UDS; Complete Time: 22:51 sb4 08/23 21:41 Order name: XRAY Chest (1 view); Complete Time: 22:41 sb4 08/23 21:41 Order name: Head Brain Wo Cont CT; Complete Time: 22:28 sb4 08/23 21:41 Order name: Cardiac monitoring; Complete Time: 21:53 sb4 08/23 21:41 Order name: EKG - Nurse/Tech; Complete Time: :53 sb4 08/23 21:41 Order name: IV Saline Lock; Complete Time: :53 sb4 08/23 21:41 Order name: Labs collected and sent; Complete Time: :53 sb4 08/23 21:41 Order name: O2 Per Protocol; Complete Time: :53 sb4 08/23 21:41 Order name: O2 Sat Monitoring; Complete Time: :53 sb4 EC:06 Rate is 63 beats/min. Rhythm is regular, Normal Sinus Rhythm. Left axis deviation sb4 noted. NC interval is normal at 176 msec. QRS interval is normal at 112 msec. QT interval is normal at 369 msec. No Q waves. T waves are Normal. No ST changes noted. Clinical impression: No evidence of ischemia. Interpreted by me. Reviewed by me. Administered Medications: No medications were administered Disposition: 08/24 05:01 Co-signature as Attending Physician, Dany Valadez MD I agree with the assessment sp4 and plan of care. I reviewed the patient's care provided by the [facility] Provider and agree with the diagnosis and treatment plan. Disposition Summary: 08/23/24 23:12 Discharge Ordered Notes: Location: Home sb4 Problem: new sb4 Symptoms: have improved sb4 Condition: Stable sb4 Diagnosis - Syncope Near sb4 Followup: sb4 - With: Private Physician - When: 1 week - Reason: Recheck today's complaints, Re-evaluation by your physician Discharge Instructions: - Discharge Summary Sheet sb4 - Near-Syncope sb4 - Rehydration, Adult sb4 Forms: - Patient Portal Instructions sb4 - Leadership Thank You Letter sb4 NIH Stroke Scale - NIH Stroke Score Date: 08/23/2024 Time: 21:38 Total Score = 0 10. Dysarthria (speech clarity - read or repeat words) - 0(Normal) 11. Extinction and Inattention (visual/tactile/auditory/spatial/personal) - 0(No abnormality) 1a. Level of Consciousness (LOC) - 0(Alert) 1b. Level of Consciousness (LOC) (Month \T\ Age) - 0(Both) 1c. LOC Commands (Open \T\ Closes Eyes/Safety Engineer) - 0(Both) 2. Best Gaze (Lateral Gaze Paresis) - 0(Normal) 3. Visual Field Loss - 0(No visual loss) 4. Facial Palsy - 0(Normal) 5a. Left Arm: Motor (10-second hold) - 0(No drift) 5b. Right Arm: Motor (10-second hold) - 0(No drift) 6a. Left Leg: Motor (5-second hold - always test supine) - 0(No drift) 6b. Right Leg: Motor (5-second hold - always test supine) - 0(No drift) 7. Limb Ataxia (finger/nose \T\ heel/murray - test with eyes open) - 0(Absent) 8. Sensory Loss (pinprick arms/legs/face) - 0(Normal) 9. Best Language: Aphasia (description/naming/reading) - 0(No aphasia) Initials: ha1 NIH Stroke Scale - NIH Stroke Score Date: 08/23/2024 Time: 22:11 Total Score = 0 10. Dysarthria (speech clarity - read or repeat words) - 0(Normal) 11. Extinction and Inattention (visual/tactile/auditory/spatial/personal) - 0(No abnormality) 1a. Level of Consciousness (LOC) - 0(Alert) 1b. Level of Consciousness (LOC) (Month \T\ Age) - 0(Both) 1c. LOC Commands (Open \T\ Closes Eyes/Safety Engineer) - 0(Both) 2. Best Gaze (Lateral Gaze Paresis) - 0(Normal) 3. Visual Field Loss - 0(No visual loss) 4. Facial Palsy - 0(Normal) 5a. Left Arm: Motor (10-second hold) - 0(No drift) 5b. Right Arm: Motor (10-second hold) - 0(No drift) 6a. Left Leg: Motor (5-second hold - always test supine) - 0(No drift) 6b. Right Leg: Motor (5-second hold - always test supine) - 0(No drift) 7. Limb Ataxia (finger/nose \T\ heel/murray - test with eyes open) - 0(Absent) 8. Sensory Loss (pinprick arms/legs/face) - 0(Normal) 9. Best Language: Aphasia (description/naming/reading) - 0(No aphasia) Initials: sb4 Signatures: Dispatcher [employer] EDMS Kasey Sams, RN RN ha1 Katie Morris PA-C PA-C sb4 Dany Valadez MD MD sp4 Corrections: (The following items were deleted from the chart) 08/23 21:41 21:41 BASIC METABOLIC PANEL+C.LAB.BRZ ordered. EDMS EDMS 21:41 21:41 CBC+H.LAB.BRZ ordered. EDMS EDMS 21:41 21:41 HEPATIC FUNCTION+C.LAB.BRZ ordered. EDMS EDMS 21:41 21:41 MAGNESIUM+C.LAB.BRZ ordered. EDMS EDMS 21:41 21:41 PROBNP+C.LAB.BRZ ordered. EDMS EDMS 21:41 21:41 Troponin High Sensitivity+C.LAB.BRZ ordered. EDMS EDMS 21:41 21:41 Chest Single View+RAD.RAD.BRZ ordered. EDMS EDMS 21:41 21:41 Head Brain Wo Cont+CT.RAD.BRZ ordered. EDMS EDMS
[2024-08-23 23:50] VITALS: BP 110/82; TEMP 98.1; O2SAT 100
--- NOTE | 2024-08-26 12:24 | EKG ---
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
== END 2024-08-23 23:20 | disposition home or self-care (01) ==
LOC: ER 21:36
DX: R55 Syncope and collapse (principal); R53.1 Weakness; I10 Essential (primary) hypertension; Z72.0 Tobacco use
CPT/HCPCS: 36415; 70450; 71045; 80048; 80076; 80307; 82077; 83735; 83880; 84484; 85025; 93005; 99285